=== PATIENT | male | born 1970 | race African-American/Black ===

== ENCOUNTER 2019-12-30 10:16 | Emergency (ER) | payer OTHER ==
[2019-12-30 10:31] VITALS: PULSE 97; TEMP 99.2; BMI 26.3
[2019-12-30 10:51] VITALS: BP 143/104
--- NOTE | 2019-12-30 10:53 | PDOC ---
History of Present Illness - General Chief Complaint: Injury Stated Complaint: HEAD INJURY Time Seen by Provider: 12/30/19 10:37 History Source: Patient - History of Present Illness Timing/Duration: reports: other Past History - Medical History Allergies/Adverse Reactions: Allergies Allergy/AdvReac Type Severity Reaction Status Date / Time No Known Allergies Allergy Verified 12/30/19 10:25 COPD: No - Psycho-Social/Smoking History Smoking History: Never smoked Have you smoked in the past 12 months: No - Substance Abuse Hx (Audit-C & DAST Scrn) How often the patient has a drink containing alcohol: Monthly or less Number of drinks the patient has on a typical day: 1 or 2 How often the patient has six or more drinks on one occasion: Never Score: In Men: 4 or > Positive; In Women: 3 or > Positive: 1 Screen Result (Pos requires Nsg. Audit-10AR): Negative In the last yr the pt used illegal drug/Rx for NonMed reason: No Score: Yes response is considered Positive: 0 Screen Result (Positive result requires Nsg. DAST-10): Negative Review of Systems - Review of Systems ABD/GI: No: Nausea, Vomiting Integumentary: Yes: Bruising Neurological: No: Headache, Numbness, Tingling, Weakness *Physical Exam - Vital Signs Last Vital Signs Temp Pulse Resp BP Pulse Ox 99.2 F 97 H 18 158/107 H 100 12/30/19 10:26 12/30/19 10:26 12/30/19 10:26 12/30/19 10:26 12/30/19 10:26 - Physical Exam General Appearance: Yes: Appropriately Dressed Neck: positive: Supple Respiratory/Chest: negative: Respiratory Distress Integumentary: positive: Dry, Warm, Other (~2cm non tender, non fluctuant swelling to L forehead) Neurologic: positive: Fully Oriented, Alert, Normal Mood/Affect Medical Decision Making - Medical Decision Making 12/30/19 10:49 49-year-old male, denies any past medical history, here for persistent facial swelling. Patient reports head injury s/p fall 5 weeks ago. Saw his doctor 2 days after fall and was diagnosed with hematoma to the forehead and told it would eventually resolve but states swelling has been persistent x 5 weeks. Has since seen a plastic surgeon who told patient hematoma would have to be resected and patient now scheduled for procedure in several days but here for a second opinion. see exam Stable, non-expanding ~2cm hematoma to face Not resolved after 5 weeks Pt have plastics procedure next week, here for 2nd opinion Dc to f/u with plastics Elevated BP Does not carry a dx of HTN Asx from BP standpoint Rpt BP improved Pt to f/u with PMD as discussed Discharge - Discharge Information Problems reviewed: Yes Clinical Impression/Diagnosis: Facial swelling Condition: Good Disposition: HOME - Follow up/Referral Referrals: Evaristo Campos MD [Primary Care Provider] - - Patient Discharge Instructions Additional Instructions: Please follow-up with your plastic surgery on Thursday as already scheduled - Post Discharge Activity
== END 2019-12-30 10:58 | disposition home or self-care (01) ==
LOC: JERFT 10:16
DX: R22.0 Localized swelling, mass and lump, head (principal)
CPT/HCPCS: 99282-25